=== PATIENT | female | born 1945 | race Caucasian/White ===

== ENCOUNTER → 2023-08-18 07:00 | Outpatient (REF) | payer MEDICARE, BC, SELFPAY | LOC: HWRCS 07:00 | PROVIDERS: ATTENDING PHYSICIAN Family Medicine | DX: R93.89 Abnormal findings on diagnostic imaging of other specified body structures (principal); R06.09 Other forms of dyspnea | CPT/HCPCS: 71260; 93005; 93306; Q9967 ==

== ENCOUNTER → 2023-09-19 06:50 | Day surgery (SDC) | payer MEDICARE, BC, SELFPAY ==
[2023-09-19 07:40] VITALS: BMI 27.5
== END | disposition home or self-care (01) ==
LOC: CATH 06:50
PROVIDERS: ATTENDING PHYSICIAN Internal Medicine Cardiovascular Disease; FAMILY PHYSICIAN Family Medicine
DX: I08.3 Combined rheumatic disorders of mitral, aortic and tricuspid valves (principal); I48.91 Unspecified atrial fibrillation; I11.0 Hypertensive heart disease with heart failure; I50.1 Left ventricular failure, unspecified; I27.20 Pulmonary hypertension, unspecified; E78.5 Hyperlipidemia, unspecified; E03.9 Hypothyroidism, unspecified; R06.09 Other forms of dyspnea; Z79.01 Long term (current) use of anticoagulants; Z87.891 Personal history of nicotine dependence
CPT/HCPCS: 93312; 93320; 93325; 92960

== ENCOUNTER → 2023-10-17 06:52 | Day surgery (SDC) | payer MEDICARE, BC, SELFPAY ==
[2023-10-17 07:54] VITALS: BMI 25.6
== END ==
LOC: CATH 06:52
PROVIDERS: ATTENDING PHYSICIAN Internal Medicine; FAMILY PHYSICIAN Family Medicine; OTHER PHYSICIAN Internal Medicine Cardiovascular Disease
DX: I08.1 Rheumatic disorders of both mitral and tricuspid valves (principal); I48.91 Unspecified atrial fibrillation; R06.09 Other forms of dyspnea; I11.0 Hypertensive heart disease with heart failure; I50.32 Chronic diastolic (congestive) heart failure; E78.5 Hyperlipidemia, unspecified; I27.20 Pulmonary hypertension, unspecified; E03.9 Hypothyroidism, unspecified; Z82.49 Family history of ischemic heart disease and other diseases of the circulatory system; Z87.891 Personal history of nicotine dependence; Z79.01 Long term (current) use of anticoagulants
CPT/HCPCS: 93312; 93320; 93325; 92960; 93005

== ENCOUNTER → 2024-04-23 10:08 | Outpatient (REF) | payer MEDICARE, BC, SELFPAY ==
[2024-04-23 13:47] LABS: TSH 0.52 uIU/ml (0.47-4.68)
== END ==
LOC: HWLAB 10:08
PROVIDERS: ATTENDING PHYSICIAN Family Medicine
DX: I48.91 Unspecified atrial fibrillation (principal); E03.9 Hypothyroidism, unspecified
CPT/HCPCS: 36415; 84443

== ENCOUNTER → 2024-04-29 12:06 | Outpatient (REF) | payer MEDICARE, BC, SELFPAY ==
[2024-04-29 16:04] LABS: Albumin 4.4 g/dl (3.5-5.0); Blood Urea Nitrogen 30 mg/dl (7-17); Calcium 9.9 mg/dl (8.4-10.2); Carbon Dioxide 30 mmol/L (22-30); Chloride 102 mmol/L (98-107); Glucose 82 mg/dl (70-99); Phosphorus 3.7 mg/dl (2.5-4.5); Potassium 4.6 mmol/L (3.5-5.1); Sodium 139 mmol/L (135-145); eGFR > 60.00
[2024-04-29 16:20] LABS: Vitamin D, 25-OH*** 90.7 ng/mL (30-80)
[2024-04-29 16:53] LABS: Vitamin B12 830 pg/ml (239-931)
== END ==
LOC: HWLAB 12:06
PROVIDERS: ATTENDING PHYSICIAN Internal Medicine Cardiovascular Disease; REFERRING PHYSICIAN Nurse Practitioner Adult Health
DX: M81.0 Age-related osteoporosis without current pathological fracture (principal); E78.2 Mixed hyperlipidemia; R53.83 Other fatigue; I50.32 Chronic diastolic (congestive) heart failure; I10 Essential (primary) hypertension; E53.8 Deficiency of other specified B group vitamins
CPT/HCPCS: 36415; 80069; 82306; 82607

== ENCOUNTER → 2024-08-28 09:01 | Outpatient (REF) | payer MEDICARE, BC, SELFPAY ==
[2024-08-28 13:17] LABS: TSH 0.38 uIU/ml (0.47-4.68)
== END ==
LOC: HWLAB 09:01
PROVIDERS: ATTENDING PHYSICIAN Family Medicine
DX: I48.91 Unspecified atrial fibrillation (principal); E03.9 Hypothyroidism, unspecified
CPT/HCPCS: 36415; 84443

== ENCOUNTER 2024-09-13 09:21 | Day surgery (SDC) | payer MEDICARE, BC, SELFPAY | END 2024-09-13 11:45 | disposition home or self-care (01) | LOC: CATH 09:21 | PROVIDERS: ATTENDING PHYSICIAN Internal Medicine | DX: I48.0 Paroxysmal atrial fibrillation (principal); I11.0 Hypertensive heart disease with heart failure; I50.32 Chronic diastolic (congestive) heart failure; E03.9 Hypothyroidism, unspecified; Z87.891 Personal history of nicotine dependence; Z79.01 Long term (current) use of anticoagulants | CPT/HCPCS: 92960; 93005 ==

== ENCOUNTER → 2024-10-15 09:38 | Outpatient (REF) | payer MEDICARE, BC, SELFPAY ==
[2024-10-15 13:04] LABS: TSH Reflex To Free T4 1.76 uIU/ml (0.47-4.68)
== END ==
LOC: HWLAB 09:38
PROVIDERS: ATTENDING PHYSICIAN Family Medicine
DX: E03.9 Hypothyroidism, unspecified (principal)
CPT/HCPCS: 84443

== ENCOUNTER → 2024-10-16 11:24 | Outpatient (REF) | payer MEDICARE, BC, SELFPAY | LOC: RCS 11:24 | PROVIDERS: ATTENDING PHYSICIAN Nurse Practitioner; FAMILY PHYSICIAN Family Medicine | DX: I48.19 Other persistent atrial fibrillation (principal) | CPT/HCPCS: 78452; 93017; A9500; J2785 ==

== ENCOUNTER → 2024-10-23 10:38 | Outpatient (REF) | payer MEDICARE, BC, SELFPAY ==
[2024-10-23 10:57] LABS: % Basophils 0.5 % (0-2); % Eosinophils 1.5 % (0-6); % Immature Granulocytes 0.3 % (0-0.5); % Lymphocytes 21.1 % (20.5-51.1); % Monocytes 8.4 % (1.7-9.3); % Neutrophils 68.2 % (42.2-75.2); Absolute Eosinophils 0.1 10^3/uL (0-0.7); Absolute Lymphocytes 1.4 10^3/uL (1.2-3.4); Absolute Monocytes 0.6 10^3/uL (0.1-0.6); Absolute Neutrophils 4.5 10^3/uL (1.4-6.5); Hematocrit 40.3 % (37.0-47.0); Hemoglobin 13.4 g/dL (12.0-16.0); Mean Corp Hgb Conc. 33.3 g/dL (33.0-37.0); Mean Corpuscular Hgb 30.6 pg (27.0-31.0); Nucleated Red Blood Cells % 0 %; Platelet Count 202 10^3/uL (130-400); Red Blood Cell Count 4.38 10^6/uL (4.20-5.40); Red Cell Dist. Width 12.8 % (11.5-14.5); White Blood Cell Count 6.6 10^3/uL (4.8-10.8)
[2024-10-23 12:01] LABS: ALT (SGPT) 20 U/L (0-35); AST (SGOT) 24 U/L (14-36); Albumin 4.5 g/dl (3.5-5.0); Alkaline Phosphatase 73 U/L (38-126); Blood Urea Nitrogen 32 mg/dl (7-17); Calcium 9.7 mg/dl (8.4-10.2); Carbon Dioxide 27 mmol/L (22-30); Chloride 106 mmol/L (98-107); Glucose 109 mg/dl (70-99); Potassium 4.3 mmol/L (3.5-5.1); Sodium 141 mmol/L (135-145); Total Bilirubin 0.7 mg/dl (0.2-1.3); Total Protein 7.7 g/dl (6.3-8.2)
== END ==
LOC: SDSPAT 10:38
PROVIDERS: ATTENDING PHYSICIAN Internal Medicine Cardiovascular Disease; FAMILY PHYSICIAN Family Medicine; OTHER PHYSICIAN Obstetrics & Gynecology
DX: I48.19 Other persistent atrial fibrillation (principal)
CPT/HCPCS: 36415; 80053; 85025; 86850; 86900; 86901

== ENCOUNTER 2024-10-31 06:02 | Day surgery (SDC) | payer MEDICARE, BC, SELFPAY ==
[2024-10-31] VITALS (14 sets, daily range): BP systolic 88–132; BP diastolic 54–106; BMI 25.6
[2024-10-31] MEDS: TYLENOL 1000 MG PO (07:08)
[2024-10-31 08:33] LABS: ACT-LR - POC 368 Seconds (116-155)
[2024-10-31 08:53] LABS: ACT-LR - POC 387 Seconds (116-155)
[2024-10-31 09:21] LABS: ACT-LR - POC 369 Seconds (116-155)
--- NOTE | 2024-10-31 10:50 | PTCARENOTE ---
Pt rec'd in PACU area, pt drowsy but oriented. Pt denies pain, nausea, SOB. Assessment documented in PACU flowsheet.
Pt's POX on RA 90%- placed in 2L NC and sat 97%.
--- NOTE | 2024-10-31 10:56 | ITS.CL.ABL ---
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
Ablation
Procedure Report:
AFIB ablation:
Ms. Vega is a very pleasant 79 yr old woman with h/o persistent atrial fibrillation / flutters, HTN, HFpEF, and HPL presented today to the EP lab for atrial fibrillation / flutter ablation.
Date of Procedure:
10/31/2024
Indications:
Recurrent atrial fibrillation / atrial flutter
Pre-Operative Diagnosis:
Persistent atrial fibrillation /Atrial flutter
Post-Operative Diagnosis:
Persistent atrial fibrillation /Atrial flutter
Procedure Performed:
Atrial fibrillation ablation with pulmonary vein isolation
Left atrial flutter � roof dependent ablation
Posterior wall isolation
Typical atrial flutter with Cavo tricuspid isthmus (CTI) ablation
Atrial tachycardia � Justine terminalis right atrial focus
Performing Physician:
Shraddha Hernandez MD
Assistants:
EP staff
Anesthesia:
See anesthesia records
Detailed Description of the Procedure:
Written informed consent was obtained from the patient after a full explanation of the risks and benefits of the procedure including the risks of sedation and anesthesia.
The patient was brought to the electrophysiology laboratory in stable condition in fasting state. Continuous electrocardiographic and hemodynamic monitoring was initiated.
The initial rhythm was atrial fibrillation.
Time out:
The procedure site was meticulously prepared with surgical scrub and allowed to dry with no pooling. Sterile draping was applied to cover the procedure site. The image intensifier was draped with sterile bag and positioned over the patient.
Prior to the start of the procedure a surgical pause was performed with in agreement from anesthesia, EP staff with double identifier and explanation of the procedure, plan and site of the procedure stated with allergies and medications and
pertinent labs reviewed.
After infusion of local anesthetic, vascular access was obtained under ultrasound guidance and sheaths were placed over guide wire as detailed below. The images were stored in patient chart.
Sheaths:
��������������� Agilis sheath in right femoral vein upgraded from 8Fr in right femoral vein
��������������� 9Fr in right femoral vein
Catheters:
��������������� The Affera Sphere 9 catheter -bidirectional D/F� - at locations of HRA, RV, LA and LV.
��������������� ICE catheter - at locations of RA, SVC, and RV.
��������������� Bard decapolar catheter � In RA and CS
���������������
A 7000 units of heparin was given
Intracardiac ECHO:
An 8-[place] AcuNav intracardiac ECHO (ICE) probe was advanced through the 9-[place] sheath in the right femoral vein into the right atrium under fluoroscopic and ICE ultrasound image guidance and a baseline ECHO study was performed. The left atrial
size was severely dilated. There was trace tricuspid regurgitation. There was mild mitral regurgitation. There was mildly reduced left ventricular systolic function. There is no pericardial effusion. All the four veins were identified and has good
flow identified. No definite clot seen.�
During the procedure, ICE was used for monitoring of complications, guidance of trans-septal puncture, monitor the catheter position and tracking ablation lesions. No change in the pericardial space noted throughout the procedure.
Trans-septal Puncture:
Heparin was initiated and infused to maintain appropriate ACT. A J-tipped guidewire was advanced through into the superior vena cava under fluoroscopic and ICE guidance. The Agilis sheath was advanced into the superior vena cava over a guidewire. A
BRK needle with stylet was advanced inside the Agilis sheath. The apparatus was withdrawn until it was in contact with the fossa ovalis. The position was adjusted based on fluoroscopy and ultrasound images from ICE. Under fluoroscopic, hemodynamic
and ICE ultrasound guidance, left atrium was cannulated by advancing the needle. Once atrial septum was cannulated, the needle was pulled back and the guide wire was advanced through the needle into the left atrium. The guide wire was advanced into
the left superior pulmonary vein. Both the sheath and the dilator was advanced into the left atrium. The dilator with the needle was withdrawn. Blood was aspirated from the Agilis sheath and arterial blood confirmed. The sheath was flushed. Saline
injection noted into the left atrium on ICE. The waveform of the LA pressure was recorded. The mapping catheter was advanced in the Agilis sheath into the left pulmonary vein.
3D Electroanatomic Mapping:
Using the Sphere 9 Affera catheter advanced through Agilis sheath into the left atrium, an electroanatomic map (EAM) of the left atrium was created using [employer] mapping system with Bidstalk software. The map was used for localization of catheter
position and tacking of ablation lesions.
The EAM of the left atrium showed a total of 4 PVs with two left and two right sided pulmonary veins. There was extensive scarring noted in the LA. The posterior wall had scattered signals. The LA was dilated. �
Following the EAM, preparation were made for ablation.
Ablation:
Ablation # 1: Atrial fibrillation ablation - Pulmonary vein Isolation:
Pulsed field ablation was performed using an open irrigation, bidirectional, contact sensing, dual energy ablation catheter (Affera sphere -9) by completing the circumferential lesions around the left and right pulmonary veins achieving pulmonary
vein isolation.
Ablation # 2: Roof line Formation:
There was a clear channel of electrical activity left in the posterior wall with multiple CFAE and AF areas on the roof and ablation in that area increased the risk of atrial flutter and decision was made to create a roof line to block a slow
conduction. A set of pulsed field ablations were placed on the roof line connecting the left superior pulmonary vein ablation lesions to the right superior pulmonary vein lesions rings.
Cardioversion:
A 200J shock was delivered via Zoll patches and restoring the sinus rhythm.
Patient stayed in sinus for few beats and went into atrial flutter. The AFL was 560 msec and concentric in the CS. The surface EKG was not consistent with typical flutter. Decision was made to map the flutter.
The flutter was involving the posterior wall. The flutter bump terminated into sinus rhythm with ablation catheter in the posterior wall.
Ablation # 3: Posterior wall isolation with the Box lesions set Formation:
There was a significant fractionation seen in the posterior wall and LA AF foci along with CFAE made it clear as the posterior wall is critical in maintaining the atrial fibrillation and the decision was made to isolate the posterior wall by
creating a �Box� lesions.
Confirmation of the PVI and bidirectional block:
Following achievement of entrance block at the pulmonary veins, pacing from the Sphere 9 affera catheter in each of the four veins at 10 milliamps for 4 milliseconds showed entrance and exit block.
The LA was mapped with The [employer] mapping system with Prism-1 software in sinus rhythm confirming the line of block at the ablation lesions lines.
All PVI were rechecked at the end of the case. Entrance and exit block were demonstrated.
Ablation # 3: Atrial flutter ablation � Cavo-tricuspid line of block:
Patient had frequent recurrent atrial flutter that was mapped in the LA. The extensive scarring in the LA was making the EAM difficult to interpret and entrainment was not successful due to termination. The flutter however was easily inducible.
The LA map showed only passive conduction and was not mitral dependent. Decision was made to map the right atrium.
The right atrium was mapped and it terminated with bump in the CTI area.
Then the attention was diverted to typical atrial flutter.
Electroanatomic mapping of the right atrium:
Using the Sphere 9 Affera catheter advanced through Agilis sheath into the right atrium, an electroanatomic map (EAM) of the right atrium was created using the [employer] mapping system with Embrace-1 software mapping system.
There was borderline long HV conduction noted at baseline at 50 ms.
Ablation # 4: Typical Atrial Flutter Ablation:
The concentric flutter earlier could be related to CTI flutter ablation.
The CTI ablation was done using radiofrequency with Affera sphere -9 ablation, open irrigation, force-sensing bidirectional ablation catheter in the cavotricuspid isthmus from the tricuspid annulus to the IVC ridge. �
Once the ablation catheter reach near the IVC, the ablation energy was changed to pulsefield.
��������������� -Bidirectional block was confirmed across the CTI line with differential pacing.
��������������� -Double potentials were spaced greater than 98 msec apart.
��������������� -The conduction time across the CTI line from proximal CS pacing was 152 msec.
��������������� -EAM of the right atrium was obtained with coronary sinus pacing and showed a line of block at the CTI.
��������������� -The time interval just lateral to the ablation lesions was 188 msec and the lateral wall was 112 msec
��������������� - All these maneuvers confirmed the block at the CTI line.
- Post ablation HV interval was unchanged at 54msec
Ablation # 5: Focal atrial tachycardia ablation at Justine terminalis:
Pulse field ablation was performed using Pulsed field ablation was performed using an open irrigation, bidirectional, contact sensing, dual energy ablation catheter (Affera sphere -9).
The ablation catheter was placed at the Justine location and ablation was done using pulsed field energy. The ablation resulted in adequate tissue approximation and acceptable temperature rise.
The ablation in the mid Justine location was done first and it induced multiple PACs from the mid to inferior Justine location. Further consolidated lesions were made around the area and PACs subsided.
The ablated area created scar anterior to the the Justine creating a suitable substrate for propagation of atrial flutter. Decision was made to connect this to the Justine and the IVC. Hence, a line of ablations were placed connecting the ablated area
to the Justine and to the IVC.
Full EP study was done at the end of the case.
Post ablation HV interval was unchanged at 54 msec.
The post ablation AV Radha ERP was 600/240 msec.
Atrial ERP was 230ms.
Procedure End
ICE study was done again that showed no epicardial accumulation. No complications noted.
Following the completion of the EP study, catheters were removed. Protamine 40 mg was given at the end of the procedure and ACT was checked repeatedly. The sheaths were removed and hemostasis achieved with Figure of 8 suture and manual compression.
Left atrial Pressure:
Pre-Procedure: Mean LA pressure was 11mmHg (AF)
Post-Procedure: Mean LA pressure was 18mmHg (sinus)
Post-Procedure: Mean RA pressure was 10mmHg
Fluoro Time:
0.9 min
Estimated Blood loss:
<10 cc
Specimens Removed:
None.
Implants / Devices:
None
Urine output:
None
Packs / Drains/ Tubes:
None
Instrument / Sponge Count Correct:
Yes
Complications of the Procedure:
None
Condition of Patient at Time of Transfer:
Hemodynamically stable with no neurological or vascular compromise.
Summary:
Successful atrial fibrillation ablation with pulmonary vein isolation, roof flutter ablation, posterior wall isolation, Typical CTI flutter ablation, focal AT at Justine ablation
[2024-10-31] MEDS: ANESTHETIC LOZENGE 1 LOZENGE PO (11:03)
--- NOTE | 2024-10-31 11:27 | PTCARENOTE ---
ECG obtained, pt medicated with lozenge as ordered for 'scratchy throat'. Dr Hernandez at bedside and speaking with pt. Encouraging coughing and deep breathing. Pt's denies need to void at this time. Will monitor closely, tolerating ice chips. R
groin WNL.
--- NOTE | 2024-10-31 11:51 | PTCARENOTE ---
Pt attempted to void but only small amount via purewick, bladder scanned for 220 ml. Pt just voided 200 ml clear henri urine. Will monitor closely. Pt had brief afib but then converted back to sinus rhythm.
--- NOTE | 2024-10-31 14:00 | W.PN.UPDATE ---
Update Note
Progress Note Update
79 yo WF s/p PVI and flutter ablation (same day). She denies cp, sob, wayne diet, voiding, EKG SB, R fem site c/d/i, no HT. She will resume Eliquis tonight, we will switch her metoprolol form tartrate 100 bid to succinate 100 daily. Activity
restrictions reviewed. She will f/u PACKING [facility]ER in 2 weeks. She is for d/c home after 3pm if groin stable.
--- NOTE | 2024-10-31 15:34 | PTCARENOTE ---
Pt's figure of 8 suture removed easily and intact. Pt asst oob 30 mins later and ambulated to bathroom to void. Site WNL. Pt dressed. D/C instructions provided with good verbal feedback. Pt d/c to home with and son.
== END 2024-10-31 15:40 | disposition home or self-care (01) ==
LOC: CATH 06:02
PROVIDERS: ATTENDING PHYSICIAN Internal Medicine Cardiovascular Disease; FAMILY PHYSICIAN Family Medicine; OTHER PHYSICIAN Internal Medicine Cardiovascular Disease
DX: I48.19 Other persistent atrial fibrillation (principal); I48.3 Typical atrial flutter; I11.0 Hypertensive heart disease with heart failure; I50.32 Chronic diastolic (congestive) heart failure; I47.19 Other supraventricular tachycardia; Z79.899 Other long term (current) drug therapy; Z79.01 Long term (current) use of anticoagulants; Z79.890 Hormone replacement therapy; E78.2 Mixed hyperlipidemia; E03.9 Hypothyroidism, unspecified; Z87.891 Personal history of nicotine dependence
CPT/HCPCS: C1894; C1769; C1766; C1892; C1759; C1733; C1730; 85347; 86900; 86901; 93005; 93655; 93656; 93657

== ENCOUNTER → 2025-05-02 09:08 | Outpatient (REF) | payer MEDICARE, BC, SELFPAY ==
[2025-05-02 10:11] LABS: Hematocrit 40.7 % (37.0-47.0); Hemoglobin 13.7 g/dL (12.0-16.0); Mean Corp Hgb Conc. 33.7 g/dL (33.0-37.0); Mean Corpuscular Volume 88.9 fL (81.0-99.0); Nucleated Red Blood Cells % 0 %; Platelet Count 217 10^3/uL (130-400); Red Cell Dist. Width 12.8 % (11.5-14.5)
[2025-05-02 10:49] LABS: ALT (SGPT) 24 U/L (0-35); AST (SGOT) 31 U/L (14-36); Albumin 4.5 g/dl (3.5-5.0); Alkaline Phosphatase 97 U/L (38-126); Blood Urea Nitrogen 26 mg/dl (7-17); Calcium 10.0 mg/dl (8.4-10.2); Carbon Dioxide 30 mmol/L (22-30); Chloride 100 mmol/L (98-107); Glucose 96 mg/dl (70-99); HDL Cholesterol 70 mg/dl; LDL Cholesterol, Calculated 42 mg/dl; Potassium 4.6 mmol/L (3.5-5.1); Sodium 139 mmol/L (135-145); Total Protein 8.2 g/dl (6.3-8.2); Very Low Density Lipoprotein 18 mg/dl (0-30); eGFR > 60.00
[2025-05-02 11:19] LABS: TSH 0.09 uIU/ml (0.47-4.68)
== END ==
LOC: REG 09:08
PROVIDERS: ATTENDING PHYSICIAN Family Medicine; REFERRING PHYSICIAN Internal Medicine Cardiovascular Disease
DX: I48.91 Unspecified atrial fibrillation (principal); E78.2 Mixed hyperlipidemia; E03.9 Hypothyroidism, unspecified
CPT/HCPCS: 36415; 80053; 80061; 84443; 85025